=== PATIENT | male | born 1995 | race Caucasian/White ===

== ENCOUNTER 2019-08-21 21:02 | Emergency (ER) | payer BC ==
[~2019-08-21] VITALS: Ht 180 cm; Wt 77.0 kg
[2019-08-21 21:55] VITALS: BP 140/96
--- NOTE | 2019-08-21 21:55 | ED EENT ---
History of Present Illness General Chief Complaint: Laceration Stated Complaint: LACERATION ON CHIN Source: patient Exam Limitations: no limitations History of Present Illness Date Seen by Provider: Aug 21, 2019 Time Seen by Provider: 21:35 Initial Comments To ER with laceration to the left side of the chin. This occurred just prior to arrival when he fell down a stair at home. He denies any malalignment sensation of his teeth or jaw, denies any facial pain, denies any neck pain or tingling in arms, denies any loss of consciousness nausea or vomiting. is at the bedside and she has not noticed any change in behavior nausea/vomiting. Timing/Duration: abrupt Severity: moderate Prearrival Treatment: no prearrival treatment Associated Symptoms: denies symptoms Allergies and Home Medications Allergies Coded Allergies: No Known Drug Allergies (Unverified , 07/13/12) Patient Home Medication List Home Medication List Reviewed: Yes Review of Systems Review of Systems Constitutional: see HPI Eyes: No Symptoms Reported Ears: No Symptoms Reported Nose: no symptoms reported Mouth: no symptoms reported Throat: no symptoms reported Respiratory: no symptoms reported Cardiovascular: no symptoms reported Musculoskeletal: no symptoms reported Skin: see HPI Past Pounxbq-Bfroug-Adxmba Hx Patient Social History Recent Foreign Travel: No Contact w/Someone Who Travel: No Immunizations Up To Date Date of Influenza Vaccine: Apr 12, 2012 Physical Exam Height, Weight, BMI Height: '" Weight: lbs. oz. kg; BMI Method: General Appearance: WD/WN, no apparent distress, other (no Pate sign or hemotympanum no tenderness to palpation over the zygomatic bone. No epistaxis no evidence of dental injury or intraoral injury.) Eyes: bilateral eye normal inspection, bilateral eye PERRL, bilateral eye abnormal EOM Ears: bilateral ear auricle normal, bilateral ear canal normal, bilateral ear TM normal Mouth/Throat: normal mouth inspection, pharynx normal Neck: non-tender, full range of motion; No tender lateral, No tender midline; other (full range of motion of the neck flex his chin to chest and extends head turns head to either direction without pain or tingling.) Respiratory: no respiratory distress Gastrointestinal: normal bowel sounds, non tender Neurologic/Psychiatric: alert, oriented x 3 Skin: normal color, warm/dry, other (1.5 cm laceration to the left side of the anterior mandible, depth to the saphenous tissue.) Procedures/Interventions Wound Location: Face Wound Length (cm): 1.5 Wound's Depth, Shape: linear, sub Q Wound Explored: clean Irrigated w/ Saline (ccs): 30 Anesthesia: Lidocaine w/ Epi Volume Anesthetic (ccs): 1 Suture: Ethlion Suture Size: 5-0 Number of Sutures: 4 Layer Closure?: 1 Number Deep Layer Sutures: 0 Departure Impression Primary Impression: Chin laceration Qualified Codes: S01.81XA - Laceration without foreign body of other part of head, initial encounter Disposition: HOME, SELF-CARE Condition: Stable Departure-Patient Inst. Decision time for Depature: 21:54 Referrals: NO,LOCAL PHYSICIAN (PCP/Family) Primary Care Physician Patient Instructions: Laceration Repair With Stitches (DC) Add. Discharge Instructions: 1. You can shower leading water run over this in the meantime, do not shave around this area for 5 days. Return to the emergency room about 5 days to have the stitches removed. Return to ER before then for any headache nausea vomiting confusion neck pain or any other concerns. All discharge instructions reviewed with patient and/or family. Voiced understanding. Scripts No Active Prescriptions or Reported Meds NICHOLE NOLAN APRN Aug 21, 2019 21:55
--- OUTSIDE RECORDS SUMMARY | 2019-08-29 22:05 | XMS REPORT | Continuity of Care Document ---
Author Organization Unknown Address Unknown Phone Unavailable Allergies Active Description Code Type Severity Reaction Onset Reported/Identified Relationship to Patient Clinical Status Yes No Known Drug Allergies [id number] Drug Allergy Unknown N/A 07/13/2012 Medications There is no data. Problems Date Dx Coded Attending Type Code Diagnosis Diagnosed By 08/21/2019 NICHOLE NOLAN APRN Ot S01.81XA LACERATION W/O FOREIGN BODY OF OTH PART 08/21/2019 NICHOLE NOLAN APRN Ot W10.9XXA FALL (ON) (FROM) UNSPECIFIED STAIRS AND 08/21/2019 NICHOLE NOLAN APRN Ot Y92.[address] IN UNSP NON-INSTITUT (PRIVATE Procedures There is no data. Results There is no data. Encounters ACCT No. Visit Date/Time Discharge Status Pt. Type Provider Facility Loc./Unit Complaint [id number] 08/26/2019 11:57:00 020 12:15:00 DIS Emergency GARCÍA MENEZES, EMILEE Drake [facility] ER STITCH REMOVAL [id number] 08/21/2019 21:04:00 020 21:55:00 DIS Emergency NICHOLE NOLAN APRN [facility] ER LACERATION ON CHIN
== END 2019-08-21 21:55 | disposition home or self-care (01) ==
LOC: EDUNIT# 21:02 → ER 21:04
DX: S01.81XA Laceration without foreign body of other part of head, initial encounter (principal); W10.9XXA Fall (on) (from) unspecified stairs and steps, initial encounter; Y92.009 Unspecified place in unspecified non-institutional (private) residence as the place of occurrence of the external cause
CPT/HCPCS: 12011

== ENCOUNTER 2019-08-26 11:56 | Emergency (ER) | payer BC ==
[~2019-08-26] VITALS: Ht 180.3 cm; Wt 74.9 kg
[2019-08-26 12:14] VITALS: BP 131/78
== END 2019-08-26 12:15 | disposition home or self-care (01) ==
LOC: EDUNIT# 11:56 → ER 11:57
DX: S01.81XD Laceration without foreign body of other part of head, subsequent encounter (principal); X58.XXXD Exposure to other specified factors, subsequent encounter

== ENCOUNTER 2021-11-23 21:30 | Emergency (ER) | payer BC ==
[~2021-11-23] VITALS: Ht 180.3 cm; Wt 70.0 kg
[2021-11-23] MEDS ORDERED: TETANUS,DIPTH,PERTUSS P/F (BOOSTRIX) 0.5 ML VIAL IM ONE (21:45)
--- NOTE | 2021-11-23 21:52 | ED Fall/Injury ---
General Stated Complaint: FALL/R WRIST PAIN/FACIAL LAC Source: spouse Exam Limitations: intoxication (PT IS INTOXICATED AND VERY BELLIGERENT AND CURSING AND UNABLE TO GIVE DETAILS) History of Present Illness Date Seen by Provider: November 23, 2021 Time Seen by Provider: 21:40 Initial Comments PT ARRIVES VIA POV FROM HOME WITH AND FATHER PT HAD UNWITNESSED FALL DOWN APPROXIMATELY [address] WAS IN ANOTHER ROOM AND HEARD HIM PT IS VERY INTOXICATED AND HAS BEEN DRINKING HEAVILY SINCE NOON TODAY PT WAS WALKING UP THE STAIRS, AND PT WAS ON THE LANDING AT THE BOTTOM OF THE STAIRS WHEN SHE FOUND HIM PT HAS LACERATION TO RIGHT BROW AREA PT ALSO C/O RIGHT WRIST PAIN PT UNABLE TO GIVE ANY OTHER DETAILS. LAST TETANUS IS UNKNOWN PCP: DR. SHANEL SALAZAR Allergies and Home Medications Allergies Coded Allergies: No Known Drug Allergies (Unverified , 07/13/12) Patient Home Medication List Home Medication List Reviewed: Yes Tramadol HCl (Ultram) 50 Mg Tablet, 50 MG PO Q4H Prescribed by: JOSE L MCMANUS on 11/23/21 9193 Review of Systems Review of Systems Constitutional: no symptoms reported Eyes: No Symptoms Reported Ears, Nose, Mouth, Throat: no symptoms reported Respiratory: no symptoms reported Cardiovascular: no symptoms reported Gastrointestinal: no symptoms reported Genitourinary: no symptoms reported Musculoskeletal: see HPI Skin: see HPI Psychiatric/Neurological: See HPI Past Eqacxca-Zvrpen-Kojglz Hx Patient Social History Alcohol Use?: Yes (HEAVY) Alcohol Frequency: Daily Seasonal Allergies Seasonal Allergies: No Past Medical History Surgeries: Yes (MENISCUS/KNEE SURGERY) Orthopedic Respiratory: No Cardiac: No Neurological: No Genitourinary: No Gastrointestinal: No Musculoskeletal: Yes (KNEE SURGERY) Endocrine: No HEENT: No Cancer: No Psychosocial: No Physical Exam Vital Signs Vital Signs - First Documented 11/23/21 21:35 Temp 36.0 Pulse 90 Resp 20 B/P (MAP) 139/96 (110) Pulse Ox 98 O2 Delivery Room Air Capillary Refill : Height, Weight, BMI Height: '" Weight: lbs. oz. kg; 23.00 BMI Method:Actual General Appearance: other (WALKS IN ON HIS OWN AND SPEECH IS CLEAR BUT APPEARS VERY INTOXICATED AND IS VERY BELLIGERENT AND CURSING NON-STOP AND IS VERY UNCOOPERATIVE. PT IS REPEATING THINGS. REEKS OF ETOH) HEENT: PERRL/EOMI, other (2.5 CM CURVED, FULL THICKNESS LACERATION TO RIGHT LATERAL BROW WITH SLOW OOZING OF BLOOD. ) Neck: normal inspection Cardiovascular: regular rate, rhythm, no murmur Respiratory: chest non-tender, normal breath sounds Gastrointestinal: non tender, soft Back: normal inspection, no CVA tenderness, no vertebral tenderness Extremities: normal capillary refill, other (TENDERNESS TO RIGHT WRIST, BUT IS FREELY USING IT. NO SWELLING OR EXTERNAL EVIDENCE OF TRAUMA. 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 ) Procedures/Interventions Wound Location: Face Other Wound Location RIGHT LATERAL BROW AREA Wound Length (cm): 2.5 Wound's Depth, Shape: sub Q (C-SHAPLED) Wound Explored: clean Betadine Prep?: No (BETASEPT) Anesthesia: Lidocaine w/ Epi (1%) Suture: Ethlion Suture Size: 5-0 Number of Sutures: 5 Layer Closure?: 1 Sterile Dressing Applied?: No (PT REFUSED) Splinting and Joint Reduction : Splints: Florencia Wrist Progress/Results/Core Measures Results/Orders My Orders Orders - JOSE L MCMANUS DO Ct Head/Face/Cervical Wo (11/23/21 21:43) Wrist, Right, 3 Views Or More (11/23/21 21:43) Dipht,Pertuss(Acell),Tet Adult (Boostrix (11/23/21 21:45) Lidocaine/Epi 1% 1:100,000 (Xylocaine 1% (11/23/21 22:15) Lidocaine/Epi 1% 1:100,000 (Xylocaine 1% (11/23/21 22:18) Ed Ortho/Other Supplies Order (11/23/21 22:41) Medications Given in ED Current Medications Medications Dose Ordered Sig/Shawn Route Start Time Stop Time Status Last Admin Dose Admin Lidocaine/ Epinephrine 10 ml STK-MED ONCE .ROUTE 11/23/21 22:18 11/23/21 22:22 DC 11/23/21 22:28 10 ML Vital Signs/I&O 11/23/21 11/23/21 21:35 22:55 Temp 36.0 Pulse 90 93 Resp 20 20 B/P (MAP) 139/96 (110) 125/92 Pulse Ox 98 97 O2 Delivery Room Air Room Air Progress Progress Note : Progress Note PT REMAINED VERY BELLIGERENT THROUGHOUT ER STAY. NO DETERIORATION IN PT'S CONDITION DURING ER STAY PT STATES HE JUST WANTS HIS FACE STITCHED UP AND WANTS TO GO PT REFUSES TETANUS VACCINE PT REFUSES TO WEAR SPLINT. Diagnostic Imaging Comments PER RADIOLOGIST REPORTS AT 2241 XRAYS RIGHT WRIST--FINDINGS: There is suggestion of very subtle lucency of the distal radius with perhaps intra-articular extension suspect for nondisplaced fracture along the more volar and central aspect of the radius. Distal ulna intact. Carpal bones intact. Suggestion of mild soft tissue edema. IMPRESSION: Findings do suggest a subtle, nondisplaced intra-articular fracture of the distal right radius. CT HEAD/MAXILLOFACIALS/CERVICAL SPINE-- CT HEAD FINDINGS: The ventricles and sulci are within normal limits. There is no midline shift or mass effect. No evidence for acute intracranial hemorrhage or extra-axial fluid collections. There is a small laceration superior lateral to the right orbital rim. No foreign body. The bony calvarium is intact. Mild to moderate mucosal thickening floor of the right maxillary sinus and to a lesser degree, the left maxillary sinus. CT CERVICAL SPINE FINDINGS: There is normal alignment and curvature of the cervical spine. There is no evidence for acute bony abnormality. The odontoid is intact. The prevertebral soft tissues are normal. CT MAXILLOFACIAL FINDINGS: There is no acute displaced maxillofacial fracture deformity. IMPRESSION: 1. Negative for acute intracranial abnormality. Scalp laceration superior lateral to the right orbital rim. 2. No evidence for acute cervical spine fracture or subluxation. 3. Negative for acute maxillofacial fracture. 4. Mild sinusitis. Reviewed: Reviewed by Me Departure Impression Primary Impression: Fall down stairs Additional Impressions: Minor head injury without loss of consciousness RIGHT BROW LACERATION Closed fracture of right distal radius Alcohol intoxication Disposition: 01 HOME, SELF-CARE Condition: Stable Departure-Patient Inst. Decision time for Depature: 22:44 Referrals: SHANEL SALAZAR MD (PCP/Family) Primary Care Physician KARI DAWSON MD Patient Instructions: Concussion, Adult ED, Forearm and Wrist Fractures ED, Laceration Repair With Stitches (DC) Add. Discharge Instructions: WEAR SPLINT AT ALL TIMES ICE TO SORE AREAS AT 20 MINUTE INTERVALS ELEVATE RIGHT HAND MUCH POSSIBLE LEAVE WOUND CLEAN AND DRY--DO NOT GET WET, OTHER THAN TO CLEAN IT TWICE A DAY WITH ANTIBACTERIAL SOAP AND WATER ON A Q-TIP TYLENOL NEEDED FOR PAIN FOLLOW UP WITH DR. DAWSON NEXT WEEK FOR FURTHER CARE--CALL ON THURSDAY TO SCHEDULE APPOINTMENT Scripts Tramadol HCl (Ultram) 50 Mg Tablet 50 MG PO Q4H for Pain, #20 TAB Prov: JOSE L MCMANUS DO 11/23/21 JOSE L MCMANUS DO November 23, 2021 21:52
[2021-11-23] MEDS ORDERED: LIDOCAINE/EPI 1%-1:100,000 (XYLOCAINE) 10 ML INJ ONE (22:15)
[2021-11-23] MEDS ORDERED: LIDOCAINE/EPI 1%-1:100,000 (XYLOCAINE) 10 ML ONE (22:18)
--- NOTE | 2021-11-23 22:35 | Diagnostic Imaging Report ---
INDICATION: Wrist pain post fall. TECHNIQUE: 3 views of the right wrist. CORRELATION STUDY: None. FINDINGS: There is suggestion of very subtle lucency of the distal radius with perhaps intra-articular extension suspect for nondisplaced fracture along the more volar and central aspect of the radius. Distal ulna intact. Carpal bones intact. Suggestion of mild soft tissue edema. IMPRESSION: Findings do suggest a subtle, nondisplaced intra-articular fracture of the distal right radius. Dictated by: Dictated on workstation # [id number]
--- NOTE | 2021-11-23 22:37 | Diagnostic Imaging Report ---
PROCEDURE: CT head, face, and cervical spine without contrast. TECHNIQUE: Multiple contiguous axial images were obtained through the head, neck, and facial bones without the use of intravenous contrast. Sagittal and coronal reformations through the cervical spine and facial bones were also performed. Auto Exposure Controls were utilized during the CT exam to meet ALARA standards for radiation dose reduction. INDICATION: 26-year-old male, status post fall with laceration over the eye. CORRELATION: None CT HEAD FINDINGS: The ventricles and sulci are within normal limits. There is no midline shift or mass effect. No evidence for acute intracranial hemorrhage or extra-axial fluid collections. There is a small laceration superior lateral to the right orbital rim. No foreign body. The bony calvarium is intact. Mild to moderate mucosal thickening floor of the right maxillary sinus and to a lesser degree, the left maxillary sinus. CT CERVICAL SPINE FINDINGS: There is normal alignment and curvature of the cervical spine. There is no evidence for acute bony abnormality. The odontoid is intact. The prevertebral soft tissues are normal. CT MAXILLOFACIAL FINDINGS: There is no acute displaced maxillofacial fracture deformity. IMPRESSION: 1. Negative for acute intracranial abnormality. Scalp laceration superior lateral to the right orbital rim. 2. No evidence for acute cervical spine fracture or subluxation. 3. Negative for acute maxillofacial fracture. 4. Mild sinusitis. Dictated by: Dictated on workstation # [id number]
[2021-11-23] MEDS ORDERED: TRAM-42 PO (22:47)
[2021-11-23 22:55] VITALS: BP 125/92
== END 2021-11-23 22:55 | disposition home or self-care (01) ==
LOC: EDUNIT# 21:30 → ER 21:32
DX: S52.571A Other intraarticular fracture of lower end of right radius, initial encounter for closed fracture (principal); S09.90XA Unspecified injury of head, initial encounter; S01.111A Laceration without foreign body of right eyelid and periocular area, initial encounter; F10.229 Alcohol dependence with intoxication, unspecified; Z23 Encounter for immunization; W10.8XXA Fall (on) (from) other stairs and steps, initial encounter
CPT/HCPCS: 12011; 70450; 70486; 72125; 73110

== ENCOUNTER 2021-11-29 08:13 | Emergency (ER) | payer BC ==
[~2021-11-29] VITALS: Ht 177 cm; Wt 77.0 kg
[~2021-11-29 08:13] MED LIST: TRAM-42 PO
[2021-11-29 08:25] VITALS: BP 0/0
== END 2021-11-29 08:36 | disposition home or self-care (01) ==
LOC: EDUNIT# 08:13 → ER 08:15
DX: Z48.02 Encounter for removal of sutures (principal)

== ENCOUNTER 2022-12-19 13:56 | Emergency (ER) | payer BC ==
[~2022-12-19] VITALS: Ht 180 cm; Wt 74.8 kg
--- NOTE | 2022-12-19 14:55 | ED Upper Extremity ---
General Chief Complaint: Laceration Stated Complaint: LT HAND/WRIST LACERATION Nursing Triage Note: PT AMBULATE TO ROOM 02 WITHOUT DIFFICULTY WITH C/O LAC TO INSIDE LEFT WRIST. PT REPORTS HE WAS CUTTING TAPE FOR A BOX AND CUT WRIST. 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 Bleeding is controlled. He is up to date on tetanus immunizations. Tendon sheath is exposed but not tendon or vascular injury is noted. Allergies and Home Medications Allergies Coded Allergies: No Known Drug Allergies (Unverified , 07/13/12) Patient Home Medication List Home Medication List Reviewed: Yes Tramadol HCl (Ultram) 50 Mg Tablet, 50 MG PO Q4H Prescribed by: JOSE L MCMANUS on 11/23/21 3463 Review of Systems Constitutional: no symptoms reported EENTM: no symptoms reported Respiratory: no symptoms reported Cardiovascular: no symptoms reported Gastrointestinal: no symptoms reported Genitourinary: no symptoms reported Musculoskeletal: see HPI Skin: see HPI Psychiatric/Neurological: No Symptoms Reported Past Plblcjy-Qjvamo-Blcvyo Hx Patient Social History Tobacco Use?: No Smoking Status: Never a Smoker Smokeless Tobacco Frequency: Never a User Use of E-Cig and/or Vaping dev: No Use of E-Cig and/or Vaping Tim: Never a User Substance use?: No Alcohol Frequency: Couple times a week Pt feels they are or have been: No Seasonal Allergies Seasonal Allergies: No Past Medical History Surgeries: Yes (MENISCUS/KNEE SURGERY) Orthopedic Respiratory: No Cardiac: No Neurological: No Genitourinary: No Gastrointestinal: No Musculoskeletal: Yes (KNEE SURGERY) Endocrine: No HEENT: No Cancer: No Psychosocial: No Physical Exam Vital Signs Vital Signs - First Documented 12/19/22 13:57 Temp 35.7 Pulse 114 Resp 19 B/P (MAP) 153/101 (118) O2 Delivery Room Air Capillary Refill : Less Than 3 Seconds Height, Weight, BMI Height: '" Weight: lbs. oz. kg; 23.00 BMI Method:Estimated General Appearance: WD/WN, mild distress (anxious about sutures) HEENT: normal ENT inspection Neck: normal inspection Respiratory: no respiratory distress Elbow/Forearm: normal inspection, non-tender, no evidence of injury, normal ROM, Left Wrist: Yes non-tender, Yes normal ROM (flexion ROM and strength was tested for all fingers and the wrist. There was no pain and no apparent tendon, muscle or vascualr injury. ) Hand: normal inspection, non-tender, no evidence of injury, normal ROM, Left Neurologic/Tendon: normal sensation, normal motor functions, normal tendon functions Neurologic/Psychiatric: no motor/sensory deficits, alert, oriented x 3 Skin: normal color, warm/dry, other (2 cm laceration over the volar aspect of left wrist with tendon sheath exposed but not injured) Procedures/Interventions Wound Location: Upper Extremities Other Wound Location Volar aspect of left wrist Wound Length (cm): 2 Wound's Depth, Shape: linear, sub Q Wound Explored: clean Irrigated w/ Saline (ccs): 100 Betadine Prep?: Yes Anesthesia: 1% Lidocaine (Buffered) Volume Anesthetic (ccs): 3 Suture: Prolene Suture Size: 4-0 Number of Sutures: 4 Layer Closure?: 1 Sterile Dressing Applied?: Yes Progress Wound was closely examined in flexion and extension to ensure there was no damage to tendon or vascular structures. No injuries were identified. Each finger was tested separately and there was no reduction in strength or pain with flexion. Tendon sheath was visible within the wound but did not appear injured. Wound was sprayed with buffered lidocaine. Skin around the wound was then cleaned with alcohol wipes. Local anesthetic was then injected using buffered lidocaine. Care was taken to avoid contact or disruption of tendons and vascular structures. Wound was then scrubbed with saline and chlorhexidine followed by a saline rinse. Skin was then prepped with Betadine and approximated with 4 sutures of 4-0 Prolene in an interrupted fashion. Great care was taken to avoid involvement of the underlying tendon and vascular structures. Patient tolerated the procedure well. Skin was wiped down with saline and chlorhexidine mixture and wound was dressed with sterile nonstick pad and Coban. Progress/Results/Core Measures Results/Orders Vital Signs/I&O Blood Pressure Mean: 118 Progress Progress Note : Progress Note See procedure note. Procedure was performed by KAUSHIK Lorenzo under my direct supervision. Departure Impression Primary Impression: Laceration of wrist Qualified Codes: S61.512A - Laceration without foreign body of left wrist, initial encounter Disposition: 01 HOME, SELF-CARE Condition: Improved Departure-Patient Inst. Decision time for Depature: 14:48 Referrals: SHANEL SALAZAR MD (PCP/Family) Primary Care Physician Patient Instructions: Laceration Repair With Stitches (DC) Add. Discharge Instructions: You received a tetanus immunization in November 2021, so repeat immunization is not necessary today. Keep your wound clean and dry except for normal showering and handwashing. You may start showering tonight. Do not submerge until sutures are removed. Monitor for signs of infection such as increasing redness, increasing swelling, puslike drainage, or fever. Return to care promptly if you notice any of these symptoms. Keep the wound covered when active, sleeping, or in dirty environments. Keep the wound open to air when at rest in a clean environment. If weeping from the wound causes dressing to stick, simply moisten the dressing with tap water and wait a few minutes. The dressing should eventually easily peel away. Starting tomorrow evening, you may apply Vaseline or antibiotic ointment to the dressing to prevent it from sticking. You may also use a large Band-Aid to cover the wound. Avoid extensive use of the left wrist as this may delay healing and cause pain/bleeding. Return in 8 to 10 days to have the sutures removed in the ER. You do not need an appointment. When you have your sutures removed, ask for the nurse to apply Steri-Strips for added support after the stitches are removed. You may use Tylenol and/or ibuprofen for discomfort. Return to the emergency room if you have any other problems or concerns about worsening condition. Call with questions. All discharge instructions reviewed with patient and/or family. Voiced understanding. EMILEE MARIANO MD Dec 19, 2022 14:55
[2022-12-19 15:02] VITALS: BP 153/101
== END 2022-12-19 15:02 | disposition home or self-care (01) ==
LOC: EDUNIT# 13:56 → ER 13:58
DX: S61.512A Laceration without foreign body of left wrist, initial encounter (principal); Z28.310 Unvaccinated for COVID-19; W26.8XXA Contact with other sharp object(s), not elsewhere classified, initial encounter
CPT/HCPCS: 99282

== ENCOUNTER 2022-12-29 13:21 | Emergency (ER) | payer BC | END 2022-12-29 13:32 | disposition home or self-care (01) | LOC: EDUNIT# 13:21 → ER 13:23 | DX: Z48.02 Encounter for removal of sutures (principal) ==